=== PATIENT | male | born 1985 | race Caucasian/White ===

== ENCOUNTER 2018-09-05 09:51 | Emergency (ER) | payer OTHER ==
[2018-09-05 10:03] VITALS: BP 109/78
--- NOTE | 2018-09-05 11:20 | UC ---
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 - History Of Current Complaint Chief Complaint: UCUpperExtremity Stated Complaint: L THUMB INJURY Time Seen by Provider: 09/05/18 10:50 Hx Obtained From: Patient Onset/Duration: Sudden Onset, Lasting Hours, Still Present Severity Initially: Moderate Severity Currently: Moderate Pain Intensity: 5 Pain Scale Used: 0-10 Numeric Character Of Pain: Sharp Aggravating Factor(s): Movement Alleviating Factor(s): Rest Associated Signs And Symptoms: Positive: Bruising Related History: Dominant Hand Right - Allergies/Home Medications Allergies/Adverse Reactions: Allergies Allergy/AdvReac Type Severity Reaction Status Date / Time No Known Allergies Allergy Verified 09/05/18 10:03 Home Medications: Home Medications NK [No Home Medications Reported] 09/05/18 [History Confirmed 09/05/18] PMH/Surg Hx/FS Hx/Imm Hx Previously Healthy: Yes - Surgical History Surgical History: Yes Surgery Procedure, Year, and Place: ta - Family History Known Family History: Positive: Non-Contributory - Social History Alcohol Use: None Substance Use Type: None Smoking Status (MU): Never Smoked Tobacco Review of Systems All Other Systems Reviewed And Are Negative: Yes Constitutional: Positive: Negative Skin: Positive: Bruising - SUBUNGUAL HEMATOMA Respiratory: Positive: Negative Cardiovascular: Positive: Negative Gastrointestinal: Positive: Negative Musculoskeletal: Positive: Arthralgia, Decreased ROM, Edema Physical Exam Triage Information Reviewed: Yes Appearance: Well-Appearing, No Pain Distress, Well-Nourished Vital Signs: Initial Vital Signs Temp 98.1 F 09/05/18 10:01 Pulse 65 09/05/18 10:01 Resp 16 09/05/18 10:01 BP 109/78 09/05/18 10:01 Pulse Ox 100 09/05/18 10:01 Vital Signs Reviewed: Yes Eyes: Positive: Conjunctiva Clear ENT: Positive: Hearing grossly normal Neck: Positive: Supple Respiratory: Positive: No respiratory distress, No accessory muscle use Cardiovascular: Positive: Pulses Normal Abdomen Description: Positive: Soft Musculoskeletal: Positive: ROM Limited @ - LEFT THUMB, Edema @ - LEFT DISTAL THUMB MINIMALLY SWOLLEN Neurological: Positive: Alert Psychological: Positive: Age Appropriate Behavior Skin: Positive: Other - LEFT THUMB SUBUNGUAL HEMATOMA ENCOMPASSING LESS THAN HALF OF NAILBED Diagnostics - Radiology LEFT THUMB XRAY Radiology Interpretation Completed By: Radiologist Summary of Radiographic Findings: Negative for fracture or articular malalignment. Mild fusiform soft tissue swelling. Hand/Wrist Course/Dx - Course Course Of Treatment: PT DECLINES NAIL TREPHINATION. STATES PAIN IS MUCH IMPROVED BY OTC MEDS. - Differential Dx/Diagnosis Provider Diagnosis: Subungual hematoma of left thumb Discharge - Sign-Out/Discharge Documenting (check all that apply): Patient Departure All imaging exams completed and their final reports reviewed: Yes - Discharge Plan Condition: Stable Disposition: HOME Patient Education Materials: Subungual Hematoma (ED), Contusion in Adults (ED) Forms: *Work Release Referrals: [facility] [Outside] - If Needed Additional Instructions: X-RAY TODAY SHOWS SOFT TISSUE SWELLING BUT NO BONY INJURY. THE HEMATOMA UNDER YOUR NAIL WILL RESORB WITH TIME. OTC MEDICATIONS NEEDED FOR DISCOMFORT. CALL THE NUMBER BELOW FOR ASSISTANCE IN ESTABLISHING WITH A PCP An additional resource available to assist in finding the appropriate physician for your health care needs is [facility] ([facility]). You may contact them by calling [phone]. - Billing Disposition and Condition Condition: STABLE Disposition: Home
== END 2018-09-05 11:30 | disposition home or self-care (01) ==
LOC: UCEAST 09:51
DX: S60.112A Contusion of left thumb with damage to nail, initial encounter (principal); W23.0XXA Caught, crushed, jammed, or pinched between moving objects, initial encounter; Y92.89 Other specified places as the place of occurrence of the external cause
CPT/HCPCS: 99211; G0463